=== PATIENT | female | born 1990 | race Caucasian/White ===

== ENCOUNTER 2017-09-11 11:39 | Emergency (ER) | payer SELFPAY ==
--- NOTE | 2017-09-11 12:20 | ERPHSYRPT ---
- History of Present Illness Time Seen by Provider: 09/11/17 12:03 Source: patient Exam Limitations: no limitations Patient Subjective Stated Complaint: pt here for abd pain rigth lower for 3 days , with some flank pain. vaginal bleeding four pads in a day .started bleeding a week after last period and has not stopped .no fever, no nausea or vomiting Triage Nursing Assessment: pt alert, resp easy, skin w/d/p. abd soft, no distress Physician History: patient presents with right lower abdominal pain and vaginal bleeding for 3 days. Patient states her last LMP was 08/21 and noticed she began having right lower quadrant/back pain along with intermittent vaginal bleeding. Abdominal pain was described as intermittent, sharp, crampy, localized and associated with intermittent but constant vaginal bleeding. Patient states she is using 3- 4 pads per day, but not passing clots or tissue. Patient also notes having some urinary frequency but no dysuria or urgency. Patient denies any vaginal discharge, nausea, vomiting, diarrhea, fever, dizziness or weakness. Patient's tried some ibuprofen with minimal relief. Pain is not associated with any activity or food. Nothing seems to worsen pain. State pain was severe today at 10/10 but now it is much better at 6/10. Patient denies having similar symptoms. Timing/Duration: day(s) (3), intermittent, gradual onset Activites at Onset: none (patient was getting ready for bed when pain began) Quality: cramping, sharpness Onset Location: RLQ Pain Radiation: none Severity of Pain-Max: severe Severity of Pain-Current: moderate Prior abdominal problems: none Sexual intercourse history: non-contributory Modifying Factors: Improves With: analgesics (ibuprofen with minimal relief), urinating (worsening symptoms) Associated Symptoms: abdominal pain, urinary frequency, lower back pain, No fever, No chills, No nausea, No vomiting, No dysuria, No nocturia Allergies/Adverse Reactions: No Known Drug Allergies Allergy (Unverified 09/11/17 11:54) Home Medications: No Reportable Medications [No Reported Medications] 09/11/17 [History] Hx Tetanus, Diphtheria Vaccination/Date Given: Yes - Review of Systems Constitutional: No Fever, No Chills Eyes: No Symptoms Ears, Nose, & Throat: No Symptoms Respiratory: No Symptoms, No Cough, No Dyspnea Cardiac: No Symptoms, No Chest Pain, No Edema, No Syncope Abdominal/Gastrointestinal: Abdominal Pain (right lower quadrant), No Nausea, No Vomiting, No Diarrhea, No Constipation, No Melena, No Appetite Changes Genitourinary Symptoms: Frequency, Vaginal Bleeding, No Dysuria, No Hematuria, No Vaginal Discharge Musculoskeletal: No Symptoms, No Back Pain, No Neck Pain Skin: No Symptoms, No Rash Neurological: No Symptoms, No Dizziness, No Focal Weakness, No Sensory Changes Psychological: No Symptoms Endocrine: No Symptoms All Other Systems: Reviewed and Negative - Past Medical History Pertinent Past Medical History: No - Past Surgical History Past Surgical History: Yes Female Surgical History: Section - Social History Smoking Status: Never smoker Exposure to second hand smoke: No Drug Use: none Patient Lives Alone: No - Female History Hx Last Menstrual Period: 08/21 Hx Now: No - Nursing Vital Signs Nursing Vital Signs: Initial Vital Signs Temperature 98.0 F 09/11/17 11:45 Pulse Rate 79 09/11/17 11:45 Respiratory Rate 16 09/11/17 11:45 Blood Pressure 142/75 09/11/17 11:45 O2 Sat by Pulse Oximetry 99 09/11/17 11:45 Pain Scale Pain Intensity 0 - Physical Exam General Appearance: no apparent distress, alert Eye Exam: PERRL/EOMI, eyes nml inspection Ears, Nose, Throat Exam: normal ENT inspection, TMs normal, pharynx normal, moist mucous membranes Neck Exam: normal inspection, non-tender, supple, full range of motion Respiratory Exam: normal breath sounds, lungs clear, No respiratory distress Cardiovascular Exam: regular rate/rhythm, normal heart sounds, normal peripheral pulses Gastrointestinal/Abdomen Exam: soft, tenderness (mild if any tenderness noted), No distention, No mass, No rebound Pelvic Exam: normal external exam, vaginal bleeding (scant bleeding noted), uterine tenderness (mild to palpation), No adnexal mass, No cervical motion tenderness, No vaginal discharge Rectal Exam: deferred Back Exam: normal inspection, normal range of motion, No CVA tenderness, No vertebral tenderness Extremity Exam: normal inspection, normal range of motion, pelvis stable Neurologic Exam: alert, oriented x 3, cooperative, cardiovascular radiologic technologist II-XII nml as tested, normal mood/affect, sensation nml, No motor deficits Skin Exam: normal color, warm, dry Lymphatic Exam: No adenopathy SpO2 Interpretation: normal SpO2: 99 Oxygen Delivery: Room Air - Course Nursing assessment & vital signs reviewed: Yes Ordered Tests: Active Orders 24 hr Category Date Time Status IV Insertion STAT Care 09/11/17 12:10 Active Pelvic Exam Assist STAT Care 09/11/17 12:10 Active BMP Stat Lab 09/11/17 12:15 Completed CBC W DIFF Stat Lab 09/11/17 12:10 Completed CULTURE,URINE Stat Lab 09/11/17 12:30 Received HCG, Quantitative (Inhouse) Stat Lab 09/11/17 12:30 Completed HCG,QUALITATIVE URINE Stat Lab 09/11/17 12:12 Completed UA W/ MICROSCOPIC Stat Lab 09/11/17 12:30 Completed Medication Summary Generic Name Dose Route Start Last Admin Trade Name Freq PRN Reason Stop Dose Admin Nalbuphine HCl 10 mg 09/11/17 14:24 Nubain 10 Mg/Ml IV 09/11/17 14:25 STAT ONE Lab/Rad Data: Laboratory Result Diagrams 09/11/17 12:10 09/11/17 12:15 Laboratory Results 09/11/17 09/11/17 09/11/17 Range/Units 12:30 12:30 12:15 WBC (4.0-10.5) K/mm3 RBC (4.1-5.4) M/mm3 Hgb (12.0-16.0) gm/dl Hct (35-47) % MCV (78-100) fl MCH (26-32) pg MCHC (32-36) g/dl RDW (11.5-14.0) % Plt Count (150-450) K/mm3 MPV (6-9.5) fl Gran % (36.0-66.0) % Lymphocytes % (24.0-44.0) % Monocytes % (0.0-12.0) % Eosinophils % (0.00-5.0) % Basophils % (0.0-0.4) % Basophils # (0-0.4) Sodium 141 (137-145) mmol/L Potassium 3.4 L (3.5-5.1) mmol/L Chloride 103 (98-107) mmol/L Carbon Dioxide 26 (22-30) mmol/L Anion Gap 15.0 (5-15) MEQ/L BUN 12 (7-17) mg/dL Creatinine 0.66 (0.52-1.04) mg/dL Estimated GFR > 60 ML/MIN Glucose 103 (74-106) mg/dL Calcium 9.4 (8.4-10.2) mg/dL Beta HCG, Quant 224.77 H (0-25) mIU/ml Ur Collection Type VOID Urine Color YELLOW (YELLOW) Urine Appearance CLEAR (CLEAR) Urine pH 5.0 (5-6) Ur Specific [place] 1.015 (1.005-1.025) Urine Protein TRACE (Negative) Urine Ketones NEGATIVE (NEGATIVE) Urine Blood 250 (0-5) [place]/ul Urine Nitrite NEGATIVE (NEGATIVE) Urine Bilirubin NEGATIVE (NEGATIVE) Urine Urobilinogen NORMAL (0-1) mg/dL Ur Leukocyte Esterase NEGATIVE (NEGATIVE) Urine Microscopic RBC 0-2 (0-2) /HPF Urine Microscopic WBC 0-2 (0-5) /HPF Ur Epithelial Cells MODERATE (FEW) /HPF Urine Bacteria FEW (NEGATIVE) /HPF Urine Culture Reflexed YES (NO) Urine Glucose NEGATIVE (NEGATIVE) mg/dL Urine HCG, Qual (Negative) Specimen Received 09/11/17 1230 09/11/17 09/11/17 Range/Units 12:12 12:10 WBC 7.7 (4.0-10.5) K/mm3 RBC 4.09 L (4.1-5.4) M/mm3 Hgb 12.9 (12.0-16.0) gm/dl Hct 39.0 (35-47) % MCV 95.4 (78-100) fl MCH 31.5 (26-32) pg MCHC 33.1 (32-36) g/dl RDW 12.2 (11.5-14.0) % Plt Count 304 (150-450) K/mm3 MPV 11.7 H (6-9.5) fl Gran % 69.1 H (36.0-66.0) % Lymphocytes % 20.5 L (24.0-44.0) % Monocytes % 8.3 (0.0-12.0) % Eosinophils % 1.8 (0.00-5.0) % Basophils % 0.3 (0.0-0.4) % Basophils # 0.02 (0-0.4) Sodium (137-145) mmol/L Potassium (3.5-5.1) mmol/L Chloride (98-107) mmol/L Carbon Dioxide (22-30) mmol/L Anion Gap (5-15) MEQ/L BUN (7-17) mg/dL Creatinine (0.52-1.04) mg/dL Estimated GFR ML/MIN Glucose (74-106) mg/dL Calcium (8.4-10.2) mg/dL Beta HCG, Quant (0-25) mIU/ml Ur Collection Type Urine Color (YELLOW) Urine Appearance (CLEAR) Urine pH (5-6) Ur Specific [place] (1.005-1.025) Urine Protein (Negative) Urine Ketones (NEGATIVE) Urine Blood (0-5) Gal[place]/ul Urine Nitrite (NEGATIVE) Urine Bilirubin (NEGATIVE) Urine Urobilinogen (0-1) mg/dL Ur Leukocyte Esterase (NEGATIVE) Urine Microscopic RBC (0-2) /HPF Urine Microscopic WBC (0-5) /HPF Ur Epithelial Cells (FEW) /HPF Urine Bacteria (NEGATIVE) /HPF Urine Culture Reflexed (NO) Urine Glucose (NEGATIVE) mg/dL Urine HCG, Qual POSITIVE (Negative) Specimen Received - Progress Progress: improved Progress Note: 09/11/17 14:24 patient was given Nubain 10 mg IV with good relief of her symptoms. Patient was informed of positive hCG for , although difficult to tell if this is an early viable pregnanc or a late . Patient understands situation and will follow-up with her [employer], Dr. Swenson in 2 days for reevaluation. Blood Culture(s) Obtained: No Antibiotics given: No Discussed with Dr.: Other (Dr. Swenson/[employer]) Will see patient in: office Counseled pt/family regarding: lab results, diagnosis - Departure Time of Disposition: 14:26 Departure Disposition: Home Clinical Impression: Threatened Condition: Stable Critical Care Time: No Instructions: Threatened Miscarriage Additional Instructions: No objects to be put intravaginally. May use Tylenol for pain. Follow-up with Dr. Swenson in 2 days for reevaluation. Return for worse abdominal pain, vaginal bleeding, fever, dizziness, weakness or any problems.
[2017-09-11 12:31] LABS: BASOPHIL % 0.3 % (0.0-0.4); Basophil (Absolute #) 0.02 (0-0.4); Eosinophil % 1.8 % (0.00-5.0); Eosinophil (Absolute #) 0.14 (0-0.5); Granulocyte Absolute (ANC) 5.34 (1.4-6.9); Granulocytes % 69.1 % (36.0-66.0); Hemoglobin 12.9 gm/dl (12.0-16.0); Lymphocyte (Absolute #) 1.58 (1.0-4.6); Lymphocytes % 20.5 % (24.0-44.0); Mean Cell Volume 95.4 fl (78-100); Mean Corpuscular Hemoglobin 31.5 pg (26-32); Mean Corpuscular Hgb Concent. 33.1 g/dl (32-36); Mean Platelet Volume 11.7 fl (6-9.5); Monocyte (Absolute #) 0.64 (0.0-1.3); Monocytes % 8.3 % (0.0-12.0); Platelet Count 304 K/mm3 (150-450); Red Blood Count 4.09 M/mm3 (4.1-5.4); Red Cell Distribution Width 12.2 % (11.5-14.0); White Blood Count 7.7 K/mm3 (4.0-10.5)
[2017-09-11 12:53] LABS: Appearance CLEAR (CLEAR); Bacteria FEW /HPF (NEGATIVE); Bilirubin NEGATIVE (NEGATIVE); Blood 250 Ery/ul (0-5); Epithelial Cells MODERATE /HPF (FEW); Glucose NEGATIVE (NEGATIVE); Ketones NEGATIVE (NEGATIVE); Leukocyte Esterase NEGATIVE (NEGATIVE); Nitrite NEGATIVE (NEGATIVE); Protein,Urine Dip TRACE (Negative); Specific Gravity 1.015 (1.005-1.025); Urobilinogen NORMAL mg/dL (0-1); WBC 0-2 /HPF (0-5)
[2017-09-11 13:02] LABS: BLOOD UREA NITROGEN 12 mg/dL (7-17); CHLORIDE 103 mmol/L (98-107); Calcium 9.4 mg/dL (8.4-10.2); Carbon Dioxide 26 mmol/L (22-30); Creatinine 1 0.66 mg/dL (0.52-1.04); Glucose 103 mg/dL (74-106); Potassium 3.4 mmol/L (3.5-5.1); SODIUM 141 mmol/L (137-145)
[2017-09-11] MEDS ORDERED: Nubain 10 MG/ML IV ONE (14:24)
[2017-09-11] MEDS ORDERED: Nubain 10 MG/ML ONE (14:36)
[2017-09-11 15:12] VITALS: BP 101/57; PULSE 70; O2SAT 97
[2017-09-11 15:40] LABS: Bacteria Few; Clue Cells None Seen; Red Blood Cells Few; Trichomonas None Seen; White Blood Cells Rare
== END 2017-09-11 15:11 | disposition home or self-care (01) ==
LOC: ED 11:39
DX: O20.0 Threatened abortion (principal); Z3A.00 Weeks of gestation of pregnancy not specified
CPT/HCPCS: 36000; 36415; 80048; 81000; 84702; 84703; 85025; 87086; 87210; 96374; 99284; J2300

== ENCOUNTER 2018-09-26 12:13 | Emergency (ER) | payer OTHER ==
[2018-09-26] MEDS ORDERED: GI COCKTAIL 45 ML (Maalox/Lidocaine) PO ONE (12:41)
[2018-09-26] MEDS ORDERED: Pepcid 20 MG PO ONE (12:42)
[2018-09-26] MEDS ORDERED: Pepcid 20 MG ONE (12:45)
[2018-09-26] MEDS ORDERED: MAALOX ES 30 ML UNIT DOSE ONE (12:46)
[2018-09-26] MEDS ORDERED: XYLOCAINE HCl Viscous ONE (12:46)
--- NOTE | 2018-09-26 12:46 | ERPHSYRPT ---
- History of Present Illness Time Seen by Provider: 09/26/18 12:35 Historian: patient Exam Limitations: no limitations Patient Subjective Stated Complaint: pain in left chest that hurts more with movements, does not radiate Triage Nursing Assessment: Pt c/o of pain in her left chest that hurts with movement x 2 days, states that she gets sharp pains in her chest but they usually go right away, non radiating, denies any injury, rates pain 7/10, S1-S2 sounds heard, no other health issues, doesn't appear to be in any distress Physician History: Pt started c/o left sided sharp chest pain at 2 AM this morning, no SOB, radiating pain, no nausea, vomiting, productive cough, wheezing, no fever, chills, diaphoresis or other complaints. Timing/Duration: hour(s) (11) Activities at Onset: rest Quality: sharpness Location: other (left upper chest) Chest Pain Radiation: no radiation Severity of Pain-Max: moderate Severity of Pain-Current: moderate Modifying Factors: Improves With: nothing Associated Symptoms: denies symptoms Prior Chest Pain/Cardiac Workup: no prior chest pain Nitro Today/Relief: no nitro taken today Aspirin Treatment Today: no aspirin today Allergies/Adverse Reactions: No Known Drug Allergies Allergy (Verified 09/26/18 12:27) Home Medications: Acyclovir 400 mg PO BID 09/26/18 [History] Hx Tetanus, Diphtheria Vaccination/Date Given: Yes - Review of Systems Constitutional: No Symptoms Eyes: No Symptoms Ears, Nose, & Throat: No Symptoms Respiratory: No Symptoms Cardiac: Chest Pain Abdominal/Gastrointestinal: No Symptoms Genitourinary Symptoms: No Symptoms Musculoskeletal: No Symptoms Skin: No Symptoms Neurological: No Symptoms Psychological: No Symptoms All Other Systems: Reviewed and Negative - Past Medical History Pertinent Past Medical History: No - Past Surgical History Past Surgical History: Yes Female Surgical History: Section - Social History Smoking Status: Former smoker Exposure to second hand smoke: No Drug Use: none Patient Lives Alone: No - Female History Hx Last Menstrual Period: 09/14/2018 Hx Now: (unknown) - Nursing Vital Signs Nursing Vital Signs: Initial Vital Signs Temperature 98.5 F 09/26/18 12:14 Pulse Rate 85 09/26/18 12:14 Blood Pressure 133/85 09/26/18 12:14 O2 Sat by Pulse Oximetry 97 09/26/18 12:14 Pain Scale Pain Intensity 0 - Physical Exam General Appearance: no apparent distress, alert Eye Exam: eyes nml inspection Ears, Nose, Throat Exam: normal ENT inspection, pharynx normal Neck Exam: normal inspection, non-tender, supple, No JVD Respiratory Exam: normal breath sounds, lungs clear, airway intact, No chest tenderness Cardiovascular Exam: regular rate/rhythm, normal heart sounds, normal peripheral pulses, No murmur Gastrointestinal/Abdomen Exam: soft, normal bowel sounds, No tenderness, No distention, No mass, No guarding, No pulsatile mass, No rebound, No hernia, No organomegaly Back Exam: normal inspection, No CVA tenderness Extremity Exam: normal inspection, No calf tenderness Neurologic Exam: alert, oriented x 3, cooperative, normal mood/affect Skin Exam: normal color, warm, dry, No rash Lymphatic Exam: No adenopathy SpO2 Interpretation: normal SpO2: 97 O2 Delivery: Room Air - Course Nursing assessment & vital signs reviewed: Yes EKG Interpreted by Me: RATE (79/min), NORMAL AXIS, NORMAL INTERVALS, NORMAL QRS , NORMAL ST-T, Other (repeat Ek:26 PM: unchanged) Ordered Tests: Active Orders 24 hr Category Date Time Status Rock Climbing Instructor STAT Care 09/26/18 12:41 Active EKG-ER Only STAT Care 09/26/18 12:39 Active EKG-ER Only STAT Care 09/26/18 14:21 Active IV Insertion STAT Care 09/26/18 12:39 Active Pulse Oximetry (ED) STAT Care 09/26/18 12:39 Active Re-Check Vital Signs STAT Care 09/26/18 12:39 Active CHEST 2 VIEWS (PA AND LAT) Stat Exams 09/26/18 12:40 Completed CBC W DIFF Stat Lab 09/26/18 12:20 Completed CK-Creatinine Phosphokinase Stat Lab 09/26/18 12:20 Completed CMP Stat Lab 09/26/18 12:20 Completed D-DIMER QUANTITATION Stat Lab 09/26/18 12:20 Completed HCG,QUALITATIVE URINE Stat Lab 09/26/18 12:44 Completed LIPASE Stat Lab 09/26/18 12:20 Completed NT PRO BNP Stat Lab 09/26/18 12:20 Completed PROTIME WITH INR Stat Lab 09/26/18 12:20 Completed PTT Stat Lab 09/26/18 12:20 Completed TROPONIN Q3H Lab 09/26/18 12:20 Completed TROPONIN Q3H Lab 09/26/18 14:30 Ordered TROPONIN Q3H Lab 09/26/18 14:37 Completed TROPONIN Q3H Lab 09/26/18 17:30 Ordered TROPONIN Q3H Lab 09/26/18 18:45 Ordered TROPONIN Q3H Lab 09/26/18 20:30 Ordered TROPONIN Q3H Lab 09/26/18 21:45 Ordered TROPONIN Q3H Lab 09/26/18 23:30 Ordered TROPONIN Q3H Lab 09/27/18 00:45 Ordered Medication Summary Discontinued Medications Generic Name Dose Route Start Last Admin Trade Name Freq PRN Reason Stop Dose Admin Al Hydrox/Mg Hydrox/Simethicone Confirm 09/26/18 12:46 Maalox Es 30 Ml Unit Dose Administered 09/26/18 12:47 Dose 30 ml .ROUTE .STK-MED ONE Famotidine 20 mg 09/26/18 12:42 09/26/18 12:47 Pepcid 20 Mg PO 09/26/18 12:43 20 mg STAT ONE Administration Famotidine Confirm 09/26/18 12:45 Pepcid 20 Mg Administered 09/26/18 12:46 Dose 20 mg .ROUTE .STK-MED ONE Lidocaine HCl Confirm 09/26/18 12:46 Xylocaine Hcl Viscous * Administered 09/26/18 12:47 Dose 1 ml .ROUTE .STK-MED ONE Magnesium Hydroxide 45 ml 09/26/18 12:41 09/26/18 12:46 Gi Cocktail 45 Ml (Maalox/Lidocaine) PO 09/26/18 12:42 45 ml STAT ONE Administration Lab/Rad Data: Laboratory Result Diagrams 09/26/18 12:20 09/26/18 12:20 Laboratory Results 09/26/18 09/26/18 09/26/18 Range/Units 14:37 12:44 12:20 WBC (4.0-10.5) K/mm3 RBC (4.1-5.4) M/mm3 Hgb (12.0-16.0) gm/dl Hct (35-47) % MCV (78-100) fl MCH (26-32) pg MCHC (32-36) g/dl RDW (11.5-14.0) % Plt Count (150-450) K/mm3 MPV (6-9.5) fl Gran % (36.0-66.0) % Eos # (Auto) (0-0.5) Absolute Lymphs (auto) (1.0-4.6) Absolute Monos (auto) (0.0-1.3) Lymphocytes % (24.0-44.0) % Monocytes % (0.0-12.0) % Eosinophils % (0.00-5.0) % Basophils % (0.0-0.4) % Absolute Granulocytes (1.4-6.9) Basophils # (0-0.4) PT (9.95-12.35) SECONDS INR (0.8-3.0) APTT (25.3-37.0) SECONDS D-Dimer (215-500) ng/mL Sodium (137-145) mmol/L Potassium (3.5-5.1) mmol/L Chloride (98-107) mmol/L Carbon Dioxide (22-30) mmol/L Anion Gap (5-15) MEQ/L BUN (7-17) mg/dL Creatinine (0.52-1.04) mg/dL Estimated GFR ML/MIN Glucose (74-106) mg/dL Calcium (8.4-10.2) mg/dL Total Bilirubin (0.2-1.3) mg/dL AST (14-36) U/L ALT (0-35) U/L Alkaline Phosphatase (38-126) U/L Creatine Kinase (30-135) U/L Troponin I < 0.012 < 0.012 (0.000-0.034) ng/mL NT-Pro-B Natriuret Pep (0-450) pg/mL Serum Total Protein (6.3-8.2) g/dL Albumin (3.5-5.0) g/dL Lipase (23-300) U/L Urine HCG, Qual NEGATIVE (Negative) 09/26/18 09/26/18 09/26/18 Range/Units 12:20 12:20 12:20 WBC 7.0 (4.0-10.5) K/mm3 RBC 4.10 (4.1-5.4) M/mm3 Hgb 12.9 (12.0-16.0) gm/dl Hct 39.7 (35-47) % MCV 96.8 (78-100) fl MCH 31.5 (26-32) pg MCHC 32.5 (32-36) g/dl RDW 12.1 (11.5-14.0) % Plt Count 309 (150-450) K/mm3 MPV 11.6 H (6-9.5) fl Gran % 66.2 H (36.0-66.0) % Eos # (Auto) 0.10 (0-0.5) Absolute Lymphs (auto) 1.84 (1.0-4.6) Absolute Monos (auto) 0.41 (0.0-1.3) Lymphocytes % 26.4 (24.0-44.0) % Monocytes % 5.9 (0.0-12.0) % Eosinophils % 1.4 (0.00-5.0) % Basophils % 0.1 (0.0-0.4) % Absolute Granulocytes 4.60 (1.4-6.9) Basophils # 0.01 (0-0.4) PT 12.1 (9.95-12.35) SECONDS INR 1.04 (0.8-3.0) APTT 34.0 (25.3-37.0) SECONDS D-Dimer < 215 L (215-500) ng/mL Sodium 139 (137-145) mmol/L Potassium 3.7 (3.5-5.1) mmol/L Chloride 103 (98-107) mmol/L Carbon Dioxide 26 (22-30) mmol/L Anion Gap 14.3 (5-15) MEQ/L BUN 9 (7-17) mg/dL Creatinine 0.81 (0.52-1.04) mg/dL Estimated GFR > 60.0 ML/MIN Glucose 101 (74-106) mg/dL Calcium 9.7 (8.4-10.2) mg/dL Total Bilirubin 0.50 (0.2-1.3) mg/dL AST 20 (14-36) U/L ALT 17 (0-35) U/L Alkaline Phosphatase 69 (38-126) U/L Creatine Kinase 56 (30-135) U/L Troponin I (0.000-0.034) ng/mL NT-Pro-B Natriuret Pep 31.7 (0-450) pg/mL Serum Total Protein 7.9 (6.3-8.2) g/dL Albumin 4.8 (3.5-5.0) g/dL Lipase 28 (23-300) U/L Urine HCG, Qual (Negative) - Progress Progress: improved Air Movement: good Progress Note: 09/26/18 15:25 Pt became pain free, she is stable, afebrile, feels much better, denies nausea, dizziness. 09/26/18 15:39WE discussed her findings, she is being discharged to rest x 1-2 days, and follow up with her physician in 2-3 days. Blood Culture(s) Obtained: No Antibiotics given: No Counseled pt/family regarding: lab results, diagnosis, need for follow-up, rad results - Departure Time of Disposition: 15:40 Departure Disposition: Home Clinical Impression: Chest pain Qualifiers: Chest pain type: unspecified Qualified Code(s): R07.9 - Chest pain, unspecified Condition: Stable Critical Care Time: No Referrals: DOCTOR,NO FAMILY [Primary Care Provider] - Instructions: Atypical Chest Pain, Acid Reflux (Gastroesophageal Reflux Disease ), Adult (DC) Additional Instructions: Rest x 1-2 days, drink plenty of fluids, and follow up with your physician in 2- 3 days, return if severe pain, shortness of breath, vomiting or fever> 102 F!
[2018-09-26 12:50] LABS: INR 1.04 (0.8-3.0); PROTIME 12.1 SECONDS (9.95-12.35)
[2018-09-26 12:56] LABS: D-DIMER QUANTITATION < 215 ng/mL (215-500)
[2018-09-26 12:59] LABS: BASOPHIL % 0.1 % (0.0-0.4); Basophil (Absolute #) 0.01 (0-0.4); Eosinophil % 1.4 % (0.00-5.0); Granulocytes % 66.2 % (36.0-66.0); Hematocrit 39.7 % (35-47); Hemoglobin 12.9 gm/dl (12.0-16.0); Lymphocyte (Absolute #) 1.84 (1.0-4.6); Lymphocytes % 26.4 % (24.0-44.0); Mean Cell Volume 96.8 fl (78-100); Mean Corpuscular Hemoglobin 31.5 pg (26-32); Mean Corpuscular Hgb Concent. 32.5 g/dl (32-36); Mean Platelet Volume 11.6 fl (6-9.5); Monocyte (Absolute #) 0.41 (0.0-1.3); Monocytes % 5.9 % (0.0-12.0); Platelet Count 309 K/mm3 (150-450); Red Cell Distribution Width 12.1 % (11.5-14.0)
[2018-09-26 13:10] LABS: ALBUMIN 4.8 g/dL (3.5-5.0); ALKALINE PHOSPHATASE 69 U/L (38-126); ANION GAP 14.3 MEQ/L (5-15); BLOOD UREA NITROGEN 9 mg/dL (7-17); CHLORIDE 103 mmol/L (98-107); CK-Creatinine Phosphokinase 56 U/L (30-135); Calcium 9.7 mg/dL (8.4-10.2); Carbon Dioxide 26 mmol/L (22-30); Creatinine 1 0.81 mg/dL (0.52-1.04); Glucose 101 mg/dL (74-106); LIPASE 28 U/L (23-300); NT PRO BNP 31.7 pg/mL (0-450); Potassium 3.7 mmol/L (3.5-5.1); SGOT/AST 20 U/L (14-36); SGPT/ALT 17 U/L (0-35); SODIUM 139 mmol/L (137-145); Total Protein 7.9 g/dL (6.3-8.2)
--- NOTE | 2018-09-26 13:57 | XRAY ---
Indication: Sternum pain. Comparison: None PA/lateral chest demonstrates normal heart, lungs, and bony thorax.
[2018-09-26 14:32] VITALS: O2SAT 97
[2018-09-26 15:50] VITALS: BP 127/76
[2018-09-26 15:51] VITALS: PULSE 86
== END 2018-09-26 15:51 | disposition home or self-care (01) ==
LOC: ED 12:13
DX: R07.9 Chest pain, unspecified (principal)
CPT/HCPCS: 36000; 36415; 71046; 80053; 82550; 83690; 83880; 84484; 84703; 85025; 85379; 85610; 85730; 93005; 93041; 99284; A9270-GY